=== PATIENT | male | born 1990 | race Caucasian/White ===

== ENCOUNTER 2017-10-30 18:05 | Emergency (ER) | payer BC ==
--- NOTE | 2017-10-30 19:21 | EDM.PDOC ---
ED HPI GENERAL MEDICAL PROBLEM - General Chief Complaint: Chest Pain Stated Complaint: CHEST PAIN Time Seen by Provider: 10/30/17 18:50 Source of Information: Reports: Patient History Limitations: Reports: No Limitations - History of Present Illness INITIAL COMMENTS - FREE TEXT/NARRATIVE: Patient is 27-year-old male with a five-day history of intermittent chest discomfort. Patient describes the pain as a sharp in nature that comes on with no known provoking factors. Pain is to the left anterior and also right anterior chest with no specific pattern. Comes on quickly resolves quickly. Patient does smoke and denies any recent history of upper respiratory symptoms. Again there's been no activities M he precipitated the discomfort. He has no back pain, fever, shortness of breath, chest pain, nausea/vomiting, abdominal pain, acid reflux, with admission to the ED. He has no additional complaints. No additional past medical history and currently taking no medications. - Related Data Allergies Allergy/AdvReac Type Severity Reaction Status Date / Time No Known Allergies Allergy Verified 10/30/17 18:17 Home Meds: Home Meds . [No Known Home Meds] 10/30/17 [History] Past Medical History - Past Health History Medical/Surgical History: Denies Medical/Surgical History Respiratory History: Reports: Pneumonia, Recurrent Psychiatric History: Reports: Anxiety - Past Surgical History GI Surgical History: Reports: Appendectomy Social & Family History - Family History Family Medical History: Noncontributory - Tobacco Use Smoking Status *Q: Current Every Day Smoker Years of Tobacco use: 11 Packs/Tins Daily: 0.5 - Caffeine Use Caffeine Use: Reports: Energy Drinks, Soda - Alcohol Use Days Per Week of Alcohol Use: 7 Number of Drinks Per Day: 12 Total Drinks Per Week: 84 Date of Last Drink: 10/29/17 - Recreational Drug Use Recreational Drug Use: No ED ROS GENERAL - Review of Systems Review Of Systems: See Below Constitutional: Reports: No Symptoms Respiratory: Reports: Pleuritic Chest Pain. Denies: Shortness of Breath, Cough , Sputum Cardiovascular: Reports: Chest Pain. Denies: Dyspnea on Exertion, Lightheadedness, Palpitations, PND, Syncope GI/Abdominal: Reports: No Symptoms : Reports: No Symptoms Musculoskeletal: Reports: No Symptoms Skin: Reports: No Symptoms Neurological: Reports: No Symptoms Psychiatric: Reports: No Symptoms ED EXAM, GENERAL - Physical Exam Exam: See Below Exam Limited By: No Limitations General Appearance: Alert, WD/WN, No Apparent Distress Ears: Hearing Grossly Normal Nose: Normal Inspection Throat/Mouth: Normal Inspection, Normal Voice, No Airway Compromise Head: Atraumatic, Normocephalic Neck: Normal Inspection, Supple, Non-Tender, Full Range of Motion Respiratory/Chest: No Respiratory Distress, Lungs Clear, Normal Breath Sounds, No Accessory Muscle Use, Chest Non-Tender Cardiovascular: Normal Peripheral Pulses, Regular Rate, Rhythm, No Murmur Peripheral Pulses: 3+: Posterior Tibial (L), Posterior Tibial (R), 4+: Radial (L ), Radial (R) GI/Abdominal: Normal Bowel Sounds, Soft, Non-Tender, No Organomegaly, No Distention Extremities: Normal Inspection, Normal Range of Motion, Non-Tender, No Pedal Edema, Normal Capillary Refill Neurological: Alert, Oriented, CN II-XII Intact, Normal Cognition, No Motor/ Sensory Deficits Psychiatric: Normal Affect, Normal Mood Skin Exam: Warm, Dry, Intact, Normal Color Course - Vital Signs Last Recorded V/S: Last Vital Signs Temp 96.6 F 10/30/17 18:10 Pulse 78 10/30/17 20:06 Resp 18 10/30/17 20:06 BP 135/100 H 10/30/17 20:06 Pulse Ox 99 10/30/17 20:06 - Orders/Labs/Meds Orders: Active Orders 24 hr Category Date Time Status EKG Documentation Completion [RC] ASDIRECTED Care 10/30/17 18:23 Active EKG 12 Lead [EK] Stat Ther 10/30/17 18:22 Ordered Labs: Laboratory Tests 10/30/17 10/30/17 Range/Units 18:40 18:40 WBC 6.72 (4.23-9.07) K/mm3 RBC 4.71 (4.63-6.08) M/mm3 Hgb 14.7 (13.7-17.5) gm/L Hct 44.0 (40.1-51.0) % MCV 93.4 H (79.0-92.2) fl MCH 31.2 (25.7-32.2) pg MCHC 33.4 (32.2-35.5) g/dl RDW Std Deviation 43.4 (35.1-43.9) fL Plt Count 187 (163-337) K/mm3 MPV 9.9 (9.4-12.3) fl Neut % (Auto) 53.3 (34.0-67.9) % Lymph % (Auto) 31.4 (21.8-53.1) % [place] % (Auto) 11.5 (5.3-12.2) % Eos % (Auto) 3.4 (0.8-7.0) Baso % (Auto) 0.4 (0.1-1.2) % Neut # (Auto) 3.58 (1.78-5.38) K/mm3 Lymph # (Auto) 2.11 (1.32-3.57) K/mm3 [place] # (Auto) 0.77 (0.30-0.82) K/mm3 Eos # (Auto) 0.23 (0.04-0.54) K/mm3 Baso # (Auto) 0.03 (0.01-0.08) K/mm3 Sodium 143 (136-145) mEq/L Potassium 3.5 (3.5-5.1) mEq/L Chloride 103 (98-107) mEq/L Carbon Dioxide 28 (21-32) mEq/L Anion Gap 15.5 H (5-15) BUN 15 (7-18) mg/dL Creatinine 1.1 (0.7-1.3) mg/dL Est Cr Clr Drug Dosing 104.89 mL/min Estimated GFR (MDRD) > 60 (>60) mL/min BUN/Creatinine Ratio 13.6 L (14-18) Glucose 87 (74-106) mg/dL Calcium 9.8 (8.5-10.1) mg/dL Total Bilirubin 0.4 (0.2-1.0) mg/dL AST 23 (15-37) U/L ALT 29 (16-63) U/L Alkaline Phosphatase 61 (46-116) U/L Troponin I < 0.017 (0.00-0.056) ng/mL C-Reactive Protein < 0.2 (<1.0) mg/dL Total Protein 8.3 H (6.4-8.2) g/dl Albumin 4.8 (3.4-5.0) g/dl Globulin 3.5 gm/dL Albumin/Globulin Ratio 1.4 (1-2) - Re-Assessments/Exams Free Text/Narrative Re-Assessment/Exam: Ordered CBC, chem 14, troponin, CRP, chest x-ray two-view, and EKG. EKG sinus rhythm with right bundle-branch pattern. LVH pattern. Diffuse early repolarization pattern. QT mildly prolonged. 10/30/17 19:44 Chest x-ray did not reveal any acute findings. Labs reviewed: CBC and chemistry panel essentially normal. Troponin less than 0.017. CRP less than 0.2. Patient has no additional complaints at this time. Pain has been intermittent sharp in nature. Suspect cause is Muscloskeletal in nature. We will discharge patient home with instructions as documented. Departure - Departure Time of Disposition: 19:54 Disposition: Home, Self-Care 01 Condition: Good Clinical Impression: Atypical chest pain Instructions: Nonspecific Chest Pain, [id number] Referrals: PCP,None [Primary Care Provider] - Forms: ED Department Discharge, ED Return to Work/School Form Additional Instructions: Most likely the etiology current complaint is musculoskeletal in nature. Treatment will be Tylenol and ibuprofen in alternating fashion for discomfort. Stop smoking. Follow-up with a primary care provider in the next week for reevaluation. Return to ED if he develops any new or worsening symptoms. - My Orders Last 24 Hours: My Active Orders 10/30/17 18:22 EKG 12 Lead [EK] Stat 10/30/17 18:23 EKG Documentation Completion [RC] ASDIRECTED - Assessment/Plan Last 24 Hours: My Active Orders 10/30/17 18:22 EKG 12 Lead [EK] Stat 10/30/17 18:23 EKG Documentation Completion [RC] ASDIRECTED
--- NOTE | 2017-10-31 07:58 | CR ---
Chest: Two views of the chest were obtained. Comparison: No prior chest x-ray. Heart size and mediastinum are normal. Lungs are clear but hyperinflated. Bony structures are unremarkable. Impression: 1. Lung monson are slightly hyperinflated. Please correlate if patient has symptoms of asthma. 2. Nothing acute is otherwise seen on two-view chest x-ray. Diagnostic code #2
== END 2017-10-30 20:00 | disposition home or self-care (01) ==
LOC: JD.ED 18:05
DX: R07.89 Other chest pain (principal); F17.210 Nicotine dependence, cigarettes, uncomplicated
CPT/HCPCS: 36415; 71046; 71046-26; 80053; 84484; 85025; 86140; 93005; 99282; 99285-25